=== PATIENT | female | born 1975 | race Two or more races ===

== ENCOUNTER 2020-07-25 08:41 | Outpatient (CLI) | payer OTHER ==
[~2020-07-25 08:41] MED LIST: TOBREX5 ML OP; URSO250 MG
== END 2020-07-25 08:56 | disposition home or self-care (01) ==
LOC: SONOGRAMA 08:41 → MAMO-SONO 08:45 → SONOGRAMA 08:56
PROVIDERS: ATTEND Internal Medicine Hepatology
DX: C22.0 Liver cell carcinoma (principal)

== ENCOUNTER 2021-12-24 09:03 | Outpatient (CLI) | payer OTHER | END 2021-12-24 09:15 | disposition home or self-care (01) | LOC: SONOGRAMA 09:03 | PROVIDERS: ATTEND Internal Medicine Hepatology | DX: N18.9 Chronic kidney disease, unspecified (principal) ==